=== PATIENT | male | born 1975 | race Hispanic/Latino ===

== ENCOUNTER 2017-03-06 13:58 | Outpatient (CLI) | payer MEDICARE, MEDICAID ==
--- NOTE | 2017-03-06 15:56 | MRI ---
BRAIN MRI WITH AND WITHOUT CONTRAST 03/06/17 CLINICAL HISTORY: Hydrocephalus, unspecified. Reference is made to head CT 09/14/15. FINDINGS: Redemonstration of enlarged ventricular system which is most notable at the left frontal horn. There is a mild degree of periventricular gliosis suggested along the area of more prominent dilatation of the left frontal horn which may be on the basis of sequela from periventricular leukomalacia. There i s no acute territorial infarction. No intracranial hemorrhage. No pathologic intra-axial enhancement. There is motion artifact which limits assessment. There is partial extrusion of the skull base flow voids. There is scattered paranasal sinus mucosal thickening. There is mild periventricular white mat ter signal alteration of the right bryan radiata posteriorly. IMPRESSION: Stable hydrocephalus. No MR evidence to confirm a significant degree of transependymal CSF migration. The size of ventricular system does not definitively correlate with intracranial pressure. Recommend clinical correlation in this regard. Minimal periventricular signal alteration, as above. POS: JOSELIN
[2017-03-06] MEDS ORDERED: Gadobenate Dimeglumine 529 MG/1 ML (20ML VIAL) ONE (16:33)
== END 2017-03-06 13:59 | disposition home or self-care (01) ==
LOC: TBSIIMAG 13:58
PROVIDERS: ATTEND Neurological Surgery
DX: G91.9 Hydrocephalus, unspecified (principal)
CPT/HCPCS: 70553; A9579

== ENCOUNTER 2017-05-07 15:13 | Emergency (ER) | payer MEDICARE, MEDICAID | END 2017-05-07 17:07 | disposition home or self-care (01) | LOC: ERS 15:13 | DX: J30.9 Allergic rhinitis, unspecified (principal); E78.5 Hyperlipidemia, unspecified | CPT/HCPCS: 99284 ==

== ENCOUNTER 2019-03-26 16:44 | Emergency (ER) | payer MEDICARE, MEDICAID | END 2019-03-26 17:32 | disposition home or self-care (01) | LOC: ERS 16:44 | DX: S80.212A Abrasion, left knee, initial encounter (principal); E78.5 Hyperlipidemia, unspecified; E78.00 Pure hypercholesterolemia, unspecified; V23.4XXA Motorcycle driver injured in collision with car, pick-up truck or van in traffic accident, initial encounter; Y93.55 Activity, bike riding | CPT/HCPCS: 99281 ==

== ENCOUNTER 2019-06-26 17:24 | Emergency (ER) | payer MEDICARE, MEDICAID, OTHER | END 2019-06-26 18:25 | disposition home or self-care (01) | LOC: ERS 17:24 | DX: Z00.00 Encounter for general adult medical examination without abnormal findings (principal); E78.5 Hyperlipidemia, unspecified; E78.00 Pure hypercholesterolemia, unspecified | CPT/HCPCS: 99281 ==

== ENCOUNTER 2019-06-27 04:28 | Emergency (ER) | payer MEDICARE, MEDICAID, OTHER | END 2019-06-27 05:11 | disposition home or self-care (01) | LOC: ERS 04:28 | DX: R05 Cough (principal); E78.5 Hyperlipidemia, unspecified; E78.00 Pure hypercholesterolemia, unspecified ==

== ENCOUNTER 2019-06-27 15:15 | Emergency (ER) | payer MEDICARE, MEDICAID, OTHER ==
[2019-06-28 10:26] LABS: SARS-CoV-2 MS2 Positive; SARS-CoV-2 N Gene Negative; SARS-CoV-2 S Gene Negative; SARS-CoV-2 orf1ab Negative
== END 2019-06-27 16:48 | disposition home or self-care (01) ==
LOC: ERS 15:15
DX: R05 Cough (principal); R09.81 Nasal congestion; Z20.828 Contact with and (suspected) exposure to other viral communicable diseases; E78.5 Hyperlipidemia, unspecified; E78.00 Pure hypercholesterolemia, unspecified
CPT/HCPCS: 99283; U0003; 87635; 99281

== ENCOUNTER 2020-05-01 11:59 | Emergency (ER) | payer MEDICARE, MEDICAID ==
[2020-05-01] MEDS ORDERED: Acetaminophen 500 MG TAB ONE (15:04)
[2020-05-01] MEDS ORDERED: Aspirin Chewable 81 MG TAB ONE ×2 (15:04)
== END 2020-05-01 15:53 | disposition home or self-care (01) ==
LOC: ERS 11:59
DX: R07.89 Other chest pain (principal); M79.602 Pain in left arm; E78.5 Hyperlipidemia, unspecified; Z79.899 Other long term (current) drug therapy
CPT/HCPCS: 36415; 71045; 80053; 84484; 85025; 93005

== ENCOUNTER 2021-07-29 20:41 | Emergency (ER) | payer MEDICARE, MEDICAID ==
[2021-07-29] MEDS ORDERED: Ketorolac Tromethamine 30 MG/ML VIAL ONE (23:08)
== END 2021-07-29 23:20 | disposition home or self-care (01) ==
LOC: ERS 20:41
DX: K04.7 Periapical abscess without sinus (principal); E78.5 Hyperlipidemia, unspecified; Z79.899 Other long term (current) drug therapy
CPT/HCPCS: 96372; 99282; J1885

== ENCOUNTER 2022-08-01 12:02 | Emergency (ER) | payer MEDICARE, MEDICAID ==
[2022-08-01] MEDS ORDERED: Morphine 4 MG/ML VIAL ONE (12:31)
[2022-08-01] MEDS ORDERED: CEFAZOLIN 2 GM VIAL ONE (13:53)
[2022-08-01] MEDS ORDERED: Boostrix 0.5 ML (Tdap) VIAL (>/=7 yrs of age) ONE (15:04)
== END 2022-08-01 17:40 | disposition short-term general hospital (02) ==
LOC: ERS 12:02 → EEVIPCON 12:02 → ERS 17:40
DX: S02.842A Fracture of lateral orbital wall, left side, initial encounter for closed fracture (principal); S02.40DA Maxillary fracture, left side, initial encounter for closed fracture; E78.5 Hyperlipidemia, unspecified; Y04.8XXA Assault by other bodily force, initial encounter; Z23 Encounter for immunization
CPT/HCPCS: 70450; 70480; 70486; 72125; 90471; 90715; 96372; 96374; J2270

== ENCOUNTER 2023-01-22 13:32 | Emergency (ER) | payer MEDICARE, MEDICAID ==
[2023-01-22 14:24] LABS: #Eosinphils 0.2 thou/uL (0.0-0.7); #Monocytes 0.4 thou/uL (0.11-0.59); #Neutrophils 4.3 thou/uL (1.40-6.50); %Basophils 0.5 % (0.0-1.0); %Eosinophils 2.6 % (0.0-10.0); %Lymphocytes 20.3 % (21.0-51.0); %Monocytes 7.1 % (0.0-10.0); %Neutrophils 69.3 % (42.0-75.0); Hematocrit 46.8 % (42.0-52.0); Hemoglobin 16.4 g/dL (14.0-18.0); Mean Corpuscular Hemoglobin 30.5 pg (27.0-31.0); Mean Platelet Volume 10.9 fL (7.4-10.4); Platelet Count 253 10x3/uL (130-400); RBC Distribution Width 11.7 % (11.5-14.5); Red Blood Cell (RBC) Count 5.38 mill/uL (4.70-6.10); White Blood Cell (WBC) Count 6.2 10x3/uL (4.8-10.8)
[2023-01-22 14:57] LABS: ALT (SGPT) 17 U/L (8-55); AST (SGOT) 19 U/L (5-34); Albumin 4.3 g/dL (3.5-5.0); Alkaline Phosphatase 87 U/L (40-110); Anion Gap 14 mmol/L (10-20); BUN (Urea Nitrogen) 8 mg/dL (8.9-20.6); Bilirubin, Total 0.5 mg/dL (0.2-1.2); Calc. Creatinine Clearance 0 mL/min (70-130); Calcium 9.4 mg/dL (7.8-10.44); Carbon Dioxide 23 mmol/L (22-29); Chloride 105 mmol/L (98-107); Estimated GFR 100; Globulin 3.2 g/dL (2.4-3.5); Glucose 114 mg/dL (70-105); Potassium 3.9 mmol/L (3.5-5.1); Protein, Total 7.5 g/dL (6.0-8.3); Sodium 138 mmol/L (136-145)
[2023-01-22 15:01] LABS: Troponin I Less than 0.010 ng/mL (< 0.028)
== END 2023-01-22 15:32 | disposition home or self-care (01) ==
LOC: ERS 13:32
DX: R07.9 Chest pain, unspecified (principal)
CPT/HCPCS: 36415; 71046; 80053; 84484; 85025; 93005

== ENCOUNTER → 2024-02-02 | Emergency (ER) | payer OTHER, MEDICAID ==
[~2024-02-02] MED LIST: Benzonatate 100 MG CAP ONE
== END ==
LOC: ERS 12:42
DX: J20.9 Acute bronchitis, unspecified (principal)
CPT/HCPCS: 71045; 87428

== ENCOUNTER 2024-03-04 13:27 | Outpatient (CLI) | payer OTHER, MEDICAID | END 2024-03-04 13:28 | disposition home or self-care (01) | LOC: BICCT 13:27 | PROVIDERS: ATTEND Psychiatry & Neurology Neurology | DX: G91.9 Hydrocephalus, unspecified (principal); G93.89 Other specified disorders of brain | CPT/HCPCS: 70450 ==

== ENCOUNTER 2025-01-26 20:52 | Emergency (ER) | payer OTHER, MEDICAID ==
[2025-01-26 22:27] LABS: #Basophils 0.05 10x3/uL (0.0-0.2); #Eosinophils 0.58 10x3/uL (0.0-0.7); #Monocytes 0.68 10x3/uL (0.11-0.59); #Neutrophils 3.96 10x3/uL (1.40-6.50); %Basophils 0.7 % (0.0-1.0); %Eosinophils 7.6 % (0.0-10.0); %Lymphocytes 30.6 % (21.0-51.0); %Monocytes 8.9 % (0.0-10.0); %Neutrophils 51.8 % (42.0-75.0); Hematocrit 48.9 % (42.0-52.0); Hemoglobin 16.1 g/dL (14.0-18.0); Mean Corpuscular Hemoglobin 29.2 pg (27.0-31.0); Mean Corpuscular Volume 88.6 fL (78.0-98.0); Platelet Count 243 10x3/uL (130-400); Red Blood Cell (RBC) Count 5.52 mill/uL (4.70-6.10); White Blood Cell (WBC) Count 7.64 10x3/uL (4.8-10.8)
[2025-01-26 22:36] LABS: ALT (SGPT) 31 U/L (Less than 45); AST (SGOT) 29 U/L (11-34); Albumin 4.4 g/dL (3.1-4.5); Alkaline Phosphatase 93 U/L (40-110); Anion Gap 14 mmol/L (10-20); BUN (Urea Nitrogen) 9 mg/dL (8.9-20.6); Bilirubin, Total 0.6 mg/dL (0.3-1.2); Calc. Creatinine Clearance 0 mL/min (70-130); Calcium 9.4 mg/dL (7.8-10.44); Carbon Dioxide 24 mmol/L (22-29); Chloride 105 mmol/L (98-107); Globulin 3.3 g/dL (2.4-3.5); Glucose 94 mg/dL (70-105); Potassium 4.0 mmol/L (3.5-5.1); Sodium 139 mmol/L (136-145)
== END 2025-01-26 23:03 ==
LOC: ERS 20:52
DX: R42 Dizziness and giddiness (principal); I10 Essential (primary) hypertension; R29.700 NIHSS score 0; F17.290 Nicotine dependence, other tobacco product, uncomplicated; Z55.6 Problems related to health literacy
CPT/HCPCS: 36415; 80053; 84484; 85025; 93005; 99284